=== PATIENT | female | born 1960 | race Two or more races ===

== ENCOUNTER 2025-09-26 10:23 | Emergency (ER) | payer OTHER, MEDICAID ==
[~2025-09-26] VITALS: Ht 165.1 cm; Wt 78.0 kg
--- NOTE | 2025-09-26 11:12 | ED.PDOC ---
Musculoskeletal HPI Comments 64 y/o F, with PMHx of DM and HLD presents to the ED for CC of lower extremity pain. Patient states, she has been experiencing left sided lower extremity pain that begin at her left buttocks and travels down through her leg onset, [id number]. Patient reports, that she takes Oxycodone for previous spinal injuries however, has been unable to take medication. Patient denies any recent trauma, injury, or fall. No other symptoms or modifying factors are present at this time. Chief Complaint: Lower Extremity Time Seen by MD: 11:00 Reviewed Notes: Nurses Notes, Medications, Allergies Allergies: Coded Allergies: Gabapentin (Verified Allergy, Unknown, 09/26/25) Penicillins (Verified Allergy, Unknown, 09/26/25) Information Source: Patient Mode of Arrival: Ambulatory Location: Left Extremity Location: Back, Leg Timing: Months Prehospital treatment: None Severity: Moderate Able to Move Extremity: Yes Bear Weight: Limited Pain: Moderate Mechanism: Spontaneous Circumstances: Spontaneous Onset of Symptoms: Spontaneous Symptoms: Pain DVT Risk Factors: NONE Associated signs and symptoms: Leg pain Past Medical History PAST MEDICAL HISTORY: DM, High Lipids Surgical History: Denies all surgeries [employer]OR OF [employer]UTR[employer] History: Denies all [employer]OR [employer] Hx Family History Family History: Unknown Social History Smoker: Non-Smoker Alcohol: Denies ETOH Use Drugs: Denies Drug Use Lives In: Home Constitutional: denies: chills, diaphoresis, fatigue, fever, malaise, sweats, weakness, others EENTM: denies: blurred vision, double vision, ear bleeding, ear discharge, ear drainage, ear pain, ear ringing, eye pain, eye redness, hearing loss, mouth pain, mouth swelling, nasal discharge, nose bleeding, nose congestion, nose pain, photophobia, tearing, throat pain, throat swelling, voice changes, others Respiratory: denies: cough, hemoptysis, orthopnea, SOB at rest, shortness of breath, SOB with excertion, stridor, wheezing, others Cardiovascular: denies: chest pain, dizzy spells, diaphoresis, Dyspnea on exertion, edema, irregular heart beat, left arm pain, lightheadedness, palpitations, PND, syncope, others Gastrointestinal: denies: abdomen distended, abdominal pain, blood streaked bowels, constipated, diarrhea, dysphagia, difficulty swallowing, hematemesis, melena, nausea, poor appetite, poor fluid intake, rectal bleeding, rectal pain, vomiting, others Genitourinary: denies: abnormal vagina bleeding, burning, dyspareunia, dysuria, flank pain, frequency, hematuria, incontinence, pain, , vagina discharge, urgency, others Neurological: denies: dizziness, fainting, headache, left sided numbness, left sided weakness, numbness, paresthesia, pre-existing deficit, right sided numbness, right sided weakness, seizure, speech problems, tingling, tremors, weakness, others Musculoskeletal: reports: back pain (left sided), others (left leg pain); denies: gout, joint pain, joint swelling, muscle pain, muscle stiffness, neck pain Integumetry: denies: bruises, change in color, change in hair/nails, dryness, laceration, lesions, lumps, rash, wounds, others Allergic/Immunocompromised: denies: Difficulty Healing, Frequent Infections, Hives, Itching, others Hematologic/Lymphatic: denies: anemia, blood clots, easy bleeding, easy bruising, swollen glands, others Endocrine: denies: excessive hunger, excessive sweating, excessive thirst, excessive urination, flushing, intolerance to cold, intolerance to heat, unexplained weight gain, unexplained weight loss, others Psychiatric: denies: anxiety, bipolar disorder, depression, hopeless, panic disorder, schizophrenia, sleepless, suicidal, others All Other Systems: Reviewed and Negative Physical Exam General Appearance: Moderate Distress HEENT: Normal ENT Inspection, PERRL/EOMI Neck: Full Range of Motion, Non-Tender, Normal, Normal Inspection Respiratory: Chest Non-Tender, Lungs Clear, No Accessory Muscle Use, No Respiratory Distress, Normal Breath Sounds Cardiovascular: No Edema, No JVD, No Murmur, No Gallop, Normal Peripheral Pulses, Regular Rate/Rhythm Breast Exam: Deferred Gastrointestinal: No Organomegaly, Non Tender, No Pulsatile Mass, Normal Bowel Sounds, Soft Genitalia: Deferred Pelvic: Deferred Rectal: Deferred Extremities: Decreased range of motion, No calf tenderness, Normal capillary refill, Normal inspection, No pedal edema, Other (Pain left leg elevation to the low back) Neurologic: Alert, supervisor slitting and shipping II-XII nml as Tested, Depressed Affect, No Motor De ficits, No Sensory Deficits Cerebellar Function: NOT DONE Reflexes: NOT DONE Skin: Dry, Normal Color, Warm Peripheral Pulses: 1+ carotid (R), 1+ carotid (L) Lymphatic: No Adenopathy Was a procedure done? Was a procedure done?: No Differential Diagnosis EXT Differential Diagnosis: Sprain, DJD, Strain, Arthritis, Other (sciatica pain) X-Ray, Labs, Meds, VS Vital Signs Date Time Temp Pulse Resp B/P (MAP) Pulse Ox O2 Delivery O2 Flow Rate FiO2 09/26/25 10:25 98.8 114 16 120/85 99 98.8 Current Medications Medications (Trade) Dose Ordered Sig/Maricarmen Route Start Time Stop Time Status Last Admin Ketorolac Tromethamine (Toradol Injection) 60 mg ONCE ONCE IM 09/26/25 11:30 09/26/25 11:31 DC 09/26/25 11:31 X-Ray, Labs, Meds, VS Comment Course in the [employer] eventful patient came in complaining of severe pain to his left leg and back pain Patient was sent for 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 Patient received a [place] Patient will be discharged home to follow up with her pcp Time of 1ST Reevaluation: 11:30 Reevaluation 1ST: Unchanged Time of 2ND Reevaluation: 14:20 Reevaluation 2ND: Improved Consultation: PCP Patient Education/Counseling: Diagnosis, Treatment, Prognosis, Need For Follow Up Family Education/Counseling: Diagnosis, Treatment, Prognosis, Need For Follow Up, No Family Present Departure 1 Departure Time of Disposition: 14:22 Impression: Primary Impression: Left lumbar radiculitis Disposition: 01 HOME / SELF CARE / HOMELESS Condition: Fair Additional Instructions: And follow up with your PCP e-Prescriptions Ibuprofen Micronized (Ibuprofen) 400 Mg Tab 400 MG PO TID for 10 Days, #30 TAB Prov: AILIN YI MD 09/26/25 Hydrocodone-Acetaminophen (Hydrocodone Bitartrate/AC 5-325 mg) 1 Tab Tab 1 TAB PO TID for 10 Days, #30 TAB Prov: AILIN YI MD 09/26/25 Discharged With: Self, Relative Critical Care Note Critical Care Time?: No Stability Stability form required: No Heart Score Heart Score: Heart Score Response (Comments) Value History N/A 0 EKG N/A 0 Age 45-64 1 Risk Factors 1 or 2 risk factors 1 Troponin N/A 0 Total 2 I personally scribed for AILIN YI MD ([email or web address]) on 09/26/25 at 11:12. Electronically submitted by Emma Galeano [email or web address]). AILIN YI MD Sep 26, 2025 11:12
[2025-09-26] MEDS: KETOROLAC TROMETH 60MG/2ML VIAL IM ONE (11:31)
--- NOTE | 2025-09-26 12:40 | DVH ---
CT LS SPINE WO CONTRAST INDICATION: Radiculitis left leg severe pain EXAM DATE: 09/26/2025 11:51 AM COMPARISON: None RADIATION DOSE: CTDIvol: 24.69 mGy, DLP: 928.99 mGy*cm PROCEDURE: Utilizing the CT scanner, contiguous axial scans were obtained through the lumbar spine. Coronal and sagittal reformatted images were then generated. All CT scans at this medical facility are performed using dose modulation techniques as appropriate to a performed exam including the following: Automated exposure control was utilized; adjustment of the MA and/or KV according to patient size; and use of iterative reconstruction technique. FINDINGS: There are 5 lumbar segments. The lumbar vertebral body heights and alignment are maintained. The intervertebral disc spaces are degenerative. The cortical margins are intact. The paraspinal soft tissues are normal. On axial images: Multilevel disc osteophyte complex with mild central canal narrowing at L4-5 with moderate bilateral neural foramina narrowing. Facet degenerative changes are noted. IMPRESSION: Mild central canal narrowing at L4-5 with moderate bilateral neural foramina narrowing. Facet degenerative changes are noted. No acute fracture CT findings of the lumbar spine.
[2025-09-26] MEDS ORDERED: IBUP1TAB4 PO (14:24)
[2025-09-26] MEDS ORDERED: HYDR-4902 PO (14:24)
[2025-09-26 14:38] VITALS: BP 154/89; PULSE 94; RESP 18; TEMP 98.4; O2SAT 99
== END 2025-09-26 14:41 | disposition home or self-care (01) ==
LOC: ER 10:23
DX: M54.16 Radiculopathy, lumbar region (principal); E11.9 Type 2 diabetes mellitus without complications; E78.5 Hyperlipidemia, unspecified; Z88.0 Allergy status to penicillin; Z79.899 Other long term (current) drug therapy
CPT/HCPCS: 72131; 96372; 99285; J1885